=== PATIENT | male | born 1965 | race Caucasian/White ===

== ENCOUNTER 2021-06-06 23:10 | Emergency (ER) | payer MEDICARE, MEDICAID, SELFPAY ==
[2021-06-06 23:16] VITALS: BP 134/92; PULSE 113; RESP 18; TEMP 36.3; O2SAT 97
--- NOTE | 2021-06-06 23:31 | W.ED.GENAD ---
Discharge Plan Disposition Patient Disposition: HOME Condition: Stable Discharge Details Clinical Impression: Acute sialoadenitis Primary Care Provider: Rom Ashley ED Provider: Raul Ayala [place] Meds and New Rx's Prescriptions: New amoxicillin-pot clavulanate [Augmentin] 875-125 mg tablet 1 tab PO BID Qty: 14 RF: 0 Continued propranolol 120 mg capsule,extended release 24 hr 120 mg PO DAILY RF: 0 CertaVite Senior 0.4-300-250 mg-mcg-mcg tablet 1 tab PO AM Qty: 90 RF: 3 diphenhydramine HCl 50 mg capsule 50 mg PO HS Qty: 100 RF: 4 trazodone 50 mg Tablet PO QHS RF: 0 Discharge Instructions Instructions: Sialoadenitis (ED) Additional Instructions: if not better this week follow up with his primary care provider return to the emergency department if he is unable to swallow liquids or feels more ill during the day while awake use lemon drops or similar candy to stimulate salivary secretion Medical Decision Making 56 yo male with hx of fragile x syndrome comes in with his home health nurse licensed practical Oziel with complaints of jaw pain today and swelling of his right cheek. No fevers or difficulty swallowing. On exam he is in no distress and most questions he looks for his home health nurse licensed practical to answer. He has swelling of his right cheek, no submandibular swelling, no gum swelling and has moist membranes, no pain with percussion of his teeth. Has tenderness over the right cheek where the parotid gland is, no erythema or warmth, no visible stones at the duct in his mouth, no swelling under the tongue. Given well appearance and symptoms starting today suspect sialoadenitis and less likely parotitis or dental infection. No findings on exam to suggest ludwigs. Though I doubt infection will cover with augmentin and advised to use lemon drops to increase secretions. ADvised to follow up with his pcp and return precautions given Differential Diagnosis Differential Diagnosis: sialoadenitits, parotitis, dental infection HPI General Mode of arrival: ambulatory. Date/Time Provider Initiated Documentation: 06/06/21 23:15. Limitations to Documentation: no limitations. Information obtained by: patient. History of Present Illness 56 year old M presents to the emergency department with the chief complaint of right cheek swellin, described as moderate, Quality is described as aching, Related Data Home Medications Medication Instructions Recorded Confirmed propranolol 120 mg capsule,24 120 mg PO DAILY 03/12/19 06/06/21 hr,extended release lajhnlsy-slr-rdeek acid 0.4 1 tab PO AM #90 tab 07/07/20 06/06/21 mg-lycopene 300 mcg-lutein 250 mcg tablet diphenhydramine HCl 50 mg capsule 50 mg PO HS #100 tab-cap 03/15/21 06/06/21 amoxicillin-pot clavulanate 1 tab PO BID #14 tab 06/06/21 [Augmentin] trazodone PO QHS 06/06/21 Previous Rx's Medication Instructions Recorded lstilzjm-ntw-uipko acid 0.4 1 tab PO AM #90 tab 07/07/20 mg-lycopene 300 mcg-lutein 250 mcg tablet diphenhydramine HCl 50 mg capsule 50 mg PO HS #100 tab-cap 03/15/21 amoxicillin-pot clavulanate 1 tab PO BID #14 tab 06/06/21 [Augmentin] Allergies Allergy/AdvReac Type Severity Reaction Status Date / Time lisinopril AdvReac Mild COUGH Unverified 04/28/21 08:43 General Stated Complaint: DentalOral SAMIA: 4 Review of Systems All systems reviewed & are unremarkable except as noted in HPI and below Constitutional Constitutional: Denies chills, Denies fever(s) and Denies weakness Cardiovascular Cardiovascular: Denies chest pain and Denies dyspnea Respiratory Respiratory: Denies cough and Denies dyspnea Gastrointestinal Gastrointestinal: Denies abdominal pain, Denies nausea and Denies vomiting Musculoskeletal Musculoskeletal: Denies joint swelling Neurologic Neurologic: Denies weakness PFSH All Active Problems (Updated 06/06/21 @ 23:35 by Raul Ayala MD) Acute sialoadenitis (Acute) Screening for colon cancer (Acute) Anxiety (Chronic) Weight gain (Acute) Abnormal weight loss (Acute 06/30/12) 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 Father No problems noted. Sister No problems noted. Brother No problems noted. Social History (Updated 04/28/21 @ 19:19 by Mattie Kc) Smoking/Tobacco Use Status: Never Second Hand Exposure: Yes Smoking risk assessment performed?: Yes Alcohol Intake: never Drug use: Never Substance use type: does not use Caregiver/Support person: Yes Household members: children and other Details: caregivers Housing: house Communication Needs: Corrective Lenses and Language Barriers Pets and animals: Yes Pets and animals: dog(s) Sexually active: No Current gender identity: male What is your relationship status?: never How often do you talk on the phone with friends or family?: decline to answer How often do you get together with friends or relatives?: decline to answer How often do you attend religion or rastafari services?: decline to answer Do you belong to any clubs or organized social groups?: decline to answer Panel score (0-1 are the most socially isolated patients): 0 What type of physical activity do you participate in: walking Duration: 15-30 minutes/day Frequency: 3-4 times per week Nieves/Jainism: No preference Special nieves needs: No Seatbelt use: always Drive intox or ride w/intox 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 Do you feel safe at home: Yes Do you feel safe in your relationship?: Yes Exam Const General: no acute distress Orientation: alert HENNV Head: normal to inspection Ears: external ears normal General nose exam: external nose normal Mouth: moist mucous membranes Eyes General: appearance normal, both eyes and all related structures Neck Neck: normal visual inspection Resp Effort & Inspection: normal respiratory effort and able to speak in complete sentences Cardio Rate: regular rate Skin General skin exam: no rashes or lesions noted Neuro General: patient alert Extrem General: normal to inspection Psych Mental Status: mental status grossly normal Course Vital Signs Vital signs: Vital Signs Temperature 36.3 C L 06/06/21 23:16 Pulse 113 H 06/06/21 23:16 Respiratory Rate 18 06/06/21 23:16 Blood Pressure 134/92 H 06/06/21 23:16 Pulse Oximetry 97 06/06/21 23:16 Temperature 36.3 C L 06/06/21 23:16 Temperature Source Temporal Artery Scan 06/06/21 23:16 Pulse 113 H 06/06/21 23:16 Respiratory Rate 18 06/06/21 23:16 Respiratory Effort 06/06/21 23:18 Blood Pressure 134/92 H 06/06/21 23:16 Blood Pressure Position Supine 06/06/21 23:16 Pulse Oximetry 97 06/06/21 23:16 Oxygen Delivery Method Room Air 06/06/21 23:16 Oxygen Flow Rate 0 06/06/21 23:16 Pain Level 6 06/06/21 23:16
[2021-06-06] MEDS: Amoxicillin 875/Clav. 125 TAB PO (23:36)
== END 2021-06-06 23:55 | disposition home or self-care (01) ==
LOC: ER 23:44
PROVIDERS: Emergency Provider Emergency Medicine; PCP Family Medicine
DX: K11.21 Acute sialoadenitis (principal)
CPT/HCPCS: 99283

== ENCOUNTER 2021-11-16 03:52 | Outpatient (CLI) | payer MEDICARE, MEDICAID, SELFPAY ==
[2021-11-16 13:57] LABS: Calculated LDL 103 mg/dL (<100); Cholesterol 178 mg/dL (<200); HDL Cholesterol 48 mg/dL (40-60); Triglyceride 139 mg/dL (<150)
[2021-11-17 08:10] LABS: PSA, Screening 0.4 ng/mL (<=3.5)
== END 2021-11-16 03:53 | disposition home or self-care (01) ==
LOC: LOS 03:52
PROVIDERS: PCP Family Medicine; Visit Provider Family Medicine
DX: E78.5 Hyperlipidemia, unspecified (principal); Z12.5 Encounter for screening for malignant neoplasm of prostate
CPT/HCPCS: 36415; 80061; 84153

== ENCOUNTER → 2022-02-12 08:43 | Outpatient (BNVA) | payer MEDICARE, MEDICAID, SELFPAY | PROVIDERS: PCP Family Medicine; Referring Provider Family Medicine; Visit Provider Surgery | DX: F88 Other disorders of psychological development (principal); Z12.11 Encounter for screening for malignant neoplasm of colon ==

== ENCOUNTER 2022-02-22 10:08 | Day surgery (SDC) | payer MEDICARE, MEDICAID, SELFPAY ==
--- NOTE | 2022-02-22 08:20 | W.COLOREPORT ---
Colonoscopy Report Date of procedure: 02/22/22 Pre-op diagnosis general: colon cancer screening Post-op diagnosis procedure note: other (polyps and diverticulosis) Procedure: Colonoscopy with polypectomy Surgeon: Yessi Giordano Anesthesia Type: General:No Airway Estimated blood loss (mL): 3 Pathology: other (rectal, ascending and descending polyps) Complications: None Disposition: same day Indications: The patient? is a pleasant? 56-year-old male who is here to discuss another screening colonoscopy. ? He denies any changes in bowel habits, melena, hematochezia, unintentional weight loss or family history of colon cancer.? The procedure and risks were discussed.? The prep was reviewed in detail.? Risks, benefits and complications have been reviewed. Complications include but are not limited to bleeding, pain, perforation, missed small lesion/polyp, sore throat, aspiration and adverse reaction to the medications. Questions were entertained and answered to their satisfaction and they wished to proceed. No guarantees were given or implied. Prep: Miralax/Dulcolax Procedure Start Time: 12:51 Procedure End Time: 13:13 Retraction Time: 9 minutes Findings: 3 small polyps moderate diverticulosis Procedure Description: After informed consent was obtained the patient was taken to the procedure room and placed in a left decubitous position. Monitors were applied and a time out was done. The patients name, date of , procedure, allergies to medications and metal in their body was reviewed. The patient was then sedated. Once sedated and comfortable a rectal exam was done. External exam was normal. Internal exam revealed a normal sphincter tone and no palpable masses. The prostate felt smooth. The scope was then introduced and retro-flexed. No internal hemorrhoids, polyps or masses were identified on retro-flexion. The scope was then advanced to the cecum without difficulty. The ileocecal vlave and appendiceal orifice were identified. The prep was good. The scope was then slowly retracted over 9 minutes back into the rectum. Polyps were removed with cold forceps in the ascending and descending colon, and with cold snare in the rectum. There was moderate haas- diverticulosis noted. The scope was removed and the patient was woken up and taken back to Same day surgery in stable condition. The patient tolerated the procedure well and there were no immediate complications.
--- NOTE | 2022-02-22 08:21 | W.PM.DSUDISC ---
Discharge Plan Disposition Patient Disposition: HOME Condition: Good Discharge Details Reason For Visit: colonoscopy Attending Provider: Yessi Giordano Primary Care Provider: Rom Ashley Home Meds and New Rx's Prescriptions: Continued propranolol 120 mg capsule,extended release 24 hr 120 mg PO DAILY trazodone 50 mg tablet 150 mg PO QHS quetiapine 25 mg tablet 25 mg PO DAILY PRN diphenhydramine HCl 50 mg capsule 50 mg PO HS Qty: 100 4RF Rx Instructions: 1 TAB-CAP HS CertaVite Senior 0.4-300-250 mg-mcg-mcg tablet 1 tab PO AM Qty: 90 3RF Discontinued bisacodyl [Dulcolax (bisacodyl)] 5 mg tablet,delayed release (DR/EC) 5 mg PO ONCE Qty: 4 0RF polyethylene glycol 3350 17 gram/dose powder 17 g PO ONCE Qty: 238 0RF Discharge Instructions Instructions: Diverticulosis (DC), Colorectal Polyps (DC) Additional Instructions: Findings: 3 polyps Diverticulosis Follow up: 5 years most likely Please call if you develop: fevers >101.5 Nausea or Vomiting Abdominal pain that is not transient Rectal bleeding that is more then a tbsp A hard abdomen and inability to pass gas DAY SURGERY UNIT POST ENDOSCOPY INSTRUCTIONS Instructions for everyone who is given Anesthesia: For your safety, please do the following for the next 24 Hours: a. Do not drive or operate dangerous equipment b. Do not drink alcohol beverages or use any recreational drugs for the first 24 hours or while taking pain medications. The medications in your body may have a reaction that can be dangerous. c. Do not make any important decisions or sign any important papers 1. Generally there are no restrictions on your activity after a day or so has gone by, but you may feel a bit fatigued for a few days. 2. After you arrive home you may have a light meal and return to a normal diet as you can tolerate it without feeling sick to your stomach. 3. After surgery, you may feel pain or discomfort. This should be only transient, but if it persists please contact your doctor. 4. If there are any questions regarding the findings of your procedure, please feel free to contact your doctor. 6. If you are unable to contact your doctor with a problem, contact the hospital at [phone]. 7. Continue all your regular medications unless directed otherwise. I understand the above instructions and have no questions. Signature of Patient or Responsible Adult Escort Date/Time Name of Responsible Adult Escort Signature of Nurse Date/Time Activity:: Activity as Tolerated Diet:: high fiber Discharge Orders Discharge Orders: Discharge Order (Routine); Ordered 02/22/22 Ordered By: Yessi Giordano
[2022-02-22 10:10] VITALS: BP 111/84; PULSE 65; RESP 16; TEMP 36.5; O2SAT 98
[2022-02-22] MEDS: Lactated Ringers 1,000 ML 80 ML IV (10:52)
--- NOTE | 2022-02-22 12:34 | W.ANESPRE ---
General Info Date of Service Date Performed: 02/22/22 Height: 5 ft 6 in Weight: 59.5 kg Body Mass Index (BMI): 21.2 Surgical Procedure: Operation Date: 02/22/22 12:20 Proposed Procedure Side Surgeon p Colonoscopy Yessi Giordano MD Meds Allergies and Home Medications Allergies Allergy/AdvReac Type Severity Reaction Status Date / Time lisinopril AdvReac Mild COUGH Verified 02/22/22 10:18 Home Medication Medication Instructions Recorded propranolol 120 mg capsule,24 120 mg PO DAILY 03/12/19 hr,extended release diphenhydramine HCl 50 mg capsule 50 mg PO HS #100 tab-caps 03/15/21 ispyqxgr-vwt-drgmi acid 0.4 1 tab PO AM #90 tabs 07/07/21 mg-lycopene 300 mcg-lutein 250 mcg tablet (CertaVite Senior) quetiapine 25 mg tablet 25 mg PO DAILY PRN 12/31/21 bisacodyl 5 mg tablet,delayed 5 mg PO ONCE #4 tabs 02/12/22 release (Dulcolax (bisacodyl)) polyethylene glycol 3350 17 17 g PO ONCE #238 grams 02/12/22 gram/dose oral powder trazodone 50 mg tablet 150 mg PO QHS 02/12/22 Current Visit Medications: Current Medications Generic Name Dose Route Start Last Admin Trade Name Freq PRN Reason Stop Dose Admin Hyoscyamine Sulfate 0.125 mg 02/22/22 08:22 Hyoscyamine 0.125 Mg Sl/Oral/Chew SL DIRECTED PRN Ringer's Solution 1,000 mls @ 80 mls/hr 02/22/22 06:00 02/22/22 10:52 IV 03/21/22 23:59 80 mls/hr INFUSION TRELL Administration IV Miscellaneous Supplies 1 each 02/22/22 06:00 Iv Access IV 03/21/22 23:59 DIRECTED TRELL Ondansetron HCl 4 mg 02/22/22 08:22 Ondansetron 4 Mg/2 Ml Vial IVP Q4H PRN PRN Nausea / Vomiting Sodium Chloride 0 ml 02/22/22 06:00 Normal Saline Flush 10 Ml Syr IV 03/21/22 23:59 PRN PRN Sodium Chloride 0 ml 02/22/22 06:00 Normal Saline 10 Ml Vial IJ 03/21/22 23:59 DIRECTED PRN Sterile Water 0 ml 02/22/22 06:00 Water,Injection,Sterile 10 Ml Vial IJ 03/21/22 23:59 DIRECTED PRN PFSH Active Problems Active Problems: Problem Status Onset Code 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 Itch of skin L29.9 History of myringotomy Z98.890 Essential hypertension I10 Dermatographic urticaria L50.3 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 Abnormal weight loss 06/30/12 R63.4 Weight gain R63.5 Anxiety F41.9 Screening for colon cancer Z12.11 Excess ear wax H61.20 Impacted cerumen of both ears H61.23 Medical History Medical History (Updated 02/22/22 @ 10:03 by Lauren Ignacio) Anxiety Fragile X syndrome in male Hypertension Surgical History Surgical History Myringotomy w/ PE (pressure equalizing) tubes S/P colonoscopy (~2008) for hematochezia- normal Tobacco Smoking/Tobacco Use Status: Never Passive smoking exposure: Yes Second hand exposure: Yes Alcohol Alcohol Intake: never Substance Use Substance use: Never Substance use type: does not use Vital Signs and Lab Results Vital Signs Most Recent Vital Signs in EMR: Most Recent Vital Signs Temp Pulse Resp BP Pulse Ox 36.5 C 65 16 111/84 98 02/22/22 10:10 02/22/22 10:10 02/22/22 10:10 02/22/22 10:10 02/22/22 10:10 Lab Results Blood Type / Crossmatch: No Data to Display Complete Blood Count: No Data to Display Complete Metabolic Panel: No Data to Display Liver Function Panel: No Data to Display Coagulation Panel: No Data to Display Cardiac Panel: No Data to Display Arterial Blood Gas: No Data to Display Venous Blood Gas: No Data to Display Pancreas Panel: No Data to Display Thyroid Panel: No Data to Display Infectious Disease: No Data to Display Blood Cultures: No Data to Display Toxicology Panel: No Data to Display Anesthesia Assessment and Plan Anesthesia History Personal History: No History of Anesthesia Complications Family History: Family History Unknown Exercise Tolerance Exercise Tolerance: Metabolic Equivalents<4 Pertinent Negatives Pertinent Negatives: No Symptoms of GERD, No Major Cardiovascular Symptoms or Complaints, No Major Pulmonary Symptoms or Complaints and No History of CVA/TIA Cardiac & Pulmonary Exam Cardiac Exam: Normal S1/S2 Heart Sounds Pulmonary Exam: Clear Bilateral Breath Sounds Implantable Cardiac Device Does patient have a Pacemaker or an ICD?: No Airway Exam Known Difficult Airway: No Mallampati Class: 1 Mouth Opening: Normal (> 3cm) Thyromental Distance: Greater than 3 cm Neck Range of Motion: Full ROM Neck Circumference: Normal Teeth Condition: Normal Dentition ASA Classification ASA Score: ASA 2 Emergency Case?: No NPO Status NPO Status: NPO Clears >2 hours, Solids >8 hours Anesthesia Plan Resuscitation Status: Full Code Anesthesia Technique: General Anesthesia Airway Planned: Natural Airway Monitors Used: Standard Monitors
[2022-02-22 12:37] VITALS: BMI 21.2
--- NOTE | 2022-02-22 12:55 | BOWEL_PTH ---
PATIENT: Yemi Lira LOC: [facility] U#:[id number] AGE/SX: 56/M ROOM: RE02/22/[address]: Yessi Giordano MD : 1965 BED: DIS: 02/22/2022 SPEC #: [id number] RECD: 02/22/22 17:07 STATUS: TACOS RE #: [id number] PABLO: 02/22/22 12:[address]: Yessi Giordano DEPT: Surgical Specimen RECD BY: Marsha Price ENTERED: 02/22/22 17:08 SP TYPE: Bowel OTHR DR: Rom Ashley MD Tissues: 1 - BIOPSY BOWEL 2 - BIOPSY BOWEL 3 - BIOPSY BOWEL Procedures: GROSS AND MICRO LEVEL 4 Comments: [id number]
--- NOTE | 2022-02-22 13:24 | W.ANESPOSTOP ---
Postoperative Evaluation Date, Time and Location Date Performed: 02/22/22 Time Performed: 13:27 Patient Location: Day Surgery Unit Vital Signs Most Recent Imported Vital Signs: Most Recent Vital Signs Temp Pulse Resp BP Pulse Ox 36.5 C 65 16 111/84 98 02/22/22 10:10 02/22/22 10:10 02/22/22 10:10 02/22/22 10:10 02/22/22 10:10 Most Recent Manually Entered Vital Signs: Adult Blood Pressure: 126/95 Heart Rate: 63 Respirations: 12 Oxygen Saturation (%): 97 Temperature (C): 36.5 C Pain Score (0-10 Scale): 0 Assessment Mental Status: Awake (Alert & Oriented to Patient Baseline) Airway and Respiratory Function: Patent airway with normal (patient baseline) respiratory exam Cardiovascular Function: Hemodynamically Stable Hydration Status: Adequately Hydrated Nausea & Vomiting: No Nausea or Vomiting Pain: Pt. Denies Any Pain Peripheral Nerve Block: Patient did not receive a nerve block
[2022-02-22 13:25] VITALS: BP 126/95; PULSE 65; RESP 20; TEMP 36.5; O2SAT 96
[2022-02-22 13:28] VITALS: BP 126/95; PULSE 63; RESP 12; TEMPC 36.5; O2SAT 97
[2022-02-22 13:53] VITALS: BP 136/94; PULSE 58; RESP 16; TEMP 36.3; O2SAT 94
== END 2022-02-22 14:38 | disposition home or self-care (01) ==
LOC: SUR 10:09
PROVIDERS: PCP Family Medicine; Visit Provider Surgery
PROC: 0DJD8ZZ Inspection of Lower Intestinal Tract, Via Natural or Artificial Opening Endoscopic (ICD-10-PCS; CPT 45378; principal; 2022-02-22 12:15)
DX: Z12.11 Encounter for screening for malignant neoplasm of colon (principal); K63.5 Polyp of colon; K57.30 Diverticulosis of large intestine without perforation or abscess without bleeding; K62.1 Rectal polyp
CPT/HCPCS: 45385; 45380; 88305; J2250

== ENCOUNTER 2025-03-13 17:40 | Outpatient (CLI) | payer MEDICARE, MEDICAID, SELFPAY ==
[2025-03-13 17:10] LABS: Estimated GFR 101.32 (mL/min/1.73m2)
[2025-03-14 18:26] LABS: HBs Antibody, Quant >1000.0 mIU/mL (See Note); Hepatitis B Surface Antigen Negative (Negative)
[2025-03-14 18:29] LABS: HIV-1/2 Ag & Ab Screen Negative (Negative)
[2025-03-14 18:31] LABS: Hepatitis C Ab w Rflx HCV PCR Negative (Negative)
== END 2025-03-13 17:41 | disposition home or self-care (01) ==
LOC: LBO 17:42
PROVIDERS: PCP Family Medicine; Visit Provider Family Medicine
DX: Z11.59 Encounter for screening for other viral diseases (principal); I10 Essential (primary) hypertension; Z00.00 Encounter for general adult medical examination without abnormal findings
CPT/HCPCS: 36415; 86704; 86706; 86803; 87340; 87389; 82565